=== PATIENT | female | born 1935 | race Hispanic/Latino ===

== ENCOUNTER 2023-04-26 10:27 | Inpatient (IN) | payer MEDICARE ==
[~2023-04-26] VITALS: Ht 160 cm; Wt 71.7 kg
[2023-04-26] MEDS ORDERED: ASPIRIN 325 MG TAB PO ONE (11:00)
[2023-04-26] MEDS ORDERED: FAMOTIDINE 20 MG/2 ML VIAL IV STA (11:10)
[2023-04-26] MEDS ORDERED: ONDANSETRON HCL INJ 2MG/ML 2ML 2 MG/ML VIAL IV STA (11:10)
[2023-04-26] MEDS ORDERED: Morphine 2mg Syringe 2 MG/ML SYR IV ONE (11:15)
[2023-04-26] MEDS ORDERED: FAMOTIDINE 20 MG/2 ML VIAL IV ONE (11:26)
[2023-04-26] MEDS ORDERED: Morphine 4mg INJECTION 4 MG/ML INJ ONE (11:26)
[2023-04-26] MEDS ORDERED: ONDANSETRON HCL INJ 2MG/ML 2ML 2 MG/ML VIAL ONE (11:26)
[2023-04-26] MEDS ORDERED: ASPIRIN 325 MG TAB ONE (11:26)
[2023-04-26] MEDS ORDERED: Morphine 4mg INJECTION 4 MG/ML INJ IV ONE (11:45)
[2023-04-26] MEDS ORDERED: ONDANSETRON HCL INJ 2MG/ML 2ML 2 MG/ML VIAL IV PRN (13:45)
[2023-04-26] MEDS ORDERED: PIPERACILLIN/TAZOBACTAM 3.375 GM VIAL ONE (13:56)
[2023-04-26 16:01] VITALS: BP 132/60; PULSE 69; RESP 18; TEMP 97.4; O2SAT 97
[2023-04-26 16:12] VITALS: BP 132/60; PULSE 69; RESP 18; TEMP 97.4; O2SAT 97
[2023-04-26] MEDS: ACETAMINOPHEN 325 MG TAB PO PRN (16:12)
[2023-04-26] MEDS: SODIUM CHLORIDE 0.9% 1000ML 1,000 ML IV SCH (16:12)
[2023-04-26] MEDS ORDERED: ACETAMINOPHEN325 M1 PO (16:19)
[2023-04-26] MEDS ORDERED: DOCUSATE SODIU100 MG PO (16:19)
[2023-04-26] MEDS ORDERED: ROSUVASTATIN CAL5 MG PO (16:19)
[2023-04-26] MEDS ORDERED: OLMESARTAN MEDO40 MG PO (16:19)
[2023-04-26] MEDS ORDERED: ASPIRIN81 MG PO (16:19)
[2023-04-26] MEDS ORDERED: FEROSUL325 MG PO (16:19)
[2023-04-26 16:20] VITALS: BP 132/60; PULSE 69; RESP 18; TEMP 98.4; O2SAT 97
[2023-04-26 20:24] VITALS: BP 102/51; PULSE 63; RESP 17; TEMP 97.7; O2SAT 100
[2023-04-26] MEDS: Morphine 4mg INJECTION 4 MG/ML INJ IV PRN (20:34)
[2023-04-27] VITALS (9 sets, daily range): BP systolic 111–148; BP diastolic 48–56; PULSE 64–79; RESP 16–20; TEMP 97.7–98.6; O2SAT 98–100
[2023-04-27] MEDS: SODIUM CHLORIDE 0.9% 1000ML 1,000 ML IV SCH ×2 (04:08→17:00)
[2023-04-27 07:35] LABS: BASOPHILS % 0.2 % (0.0-1.0); EOSINOPHILS # (AUTO) 0.1 (0.0-0.4); HEMATOCRIT 33.2 % (34.2-44.1); HEMOGLOBIN 10.6 g/dL (12.0-16.0); LYMPHOCYTES # (AUTO) 2.1 (1.0-3.2); LYMPHOCYTES % 26.3 % (18.0-39.1); MEAN CORPUSCULAR HEMOGLOBIN 27.4 pg (28-32); MEAN CORPUSCULAR HGB CONC 31.9 g/dL (31-35); MEAN CORPUSCULAR VOLUME 85.8 fL (81-99); MONOCYTES # (AUTO) 0.7 (0.2-0.8); MONOCYTES % 8.7 % (4.4-11.3); NEUTROPHILS # (AUTO) 5.1 (2.1-6.9); NEUTROPHILS % 63.7 % (38.7-80.0); PLATELET COUNT 253 x10e3/uL (140-360); RED BLOOD COUNT 3.87 x10e6/uL (3.6-5.1); RED CELL DISTRIBUTION WIDTH 14.6 % (11.7-14.4)
[2023-04-27 08:01] LABS: ALBUMIN 3.1 g/dL (3.5-5.0); ALBUMIN/GLOBULIN RATIO 0.9 (0.8-2.0); ANION GAP 12.1 mmol/L (8-16); CALCIUM 8.4 mg/dL (8.4-10.2); CREATININE, SERUM 0.92 mg/dL (0.57-1.11); POTASSIUM 4.1 mmol/L (3.5-5.1)
[2023-04-27] MEDS: ACETAMINOPHEN 325 MG TAB PO PRN (14:43)
[2023-04-28] VITALS (7 sets, daily range): BP systolic 131–171; BP diastolic 53–83; PULSE 60–85; RESP 17–21; TEMP 97.6–98.8; O2SAT 97–100
[2023-04-28 05:52] LABS: CHOL/HDL RATIO 4.3 (3.0-3.6)
[2023-04-28] MEDS: SODIUM CHLORIDE 0.9% 1000ML 1,000 ML IV SCH ×2 (06:03→22:05)
[2023-04-28] MEDS: Morphine 4mg INJECTION 4 MG/ML INJ IV PRN (08:35)
[2023-04-28 11:01] LABS: ANION GAP 18.9 mmol/L (8-16); CALCIUM 8.7 mg/dL (8.4-10.2); CREATININE, SERUM 0.84 mg/dL (0.57-1.11); POTASSIUM 3.9 mmol/L (3.5-5.1)
[2023-04-28] MEDS: CRESTOR 10MG PO SCH (21:19)
[2023-04-29] VITALS (9 sets, daily range): BP systolic 131–187; BP diastolic 60–90; PULSE 73–87; RESP 16–17; TEMP 97.6–99.3; O2SAT 98–100
[2023-04-29] MEDS: SODIUM CHLORIDE 0.9% 1000ML 1,000 ML IV SCH ×2 (08:25→21:18)
[2023-04-29] MEDS: METOPROLOL TARTRATE 25 MG TAB PO SCH ×2 (09:00→17:38)
[2023-04-29] MEDS: METOPROLOL TARTRATE INJ 1 MG/ML VIAL IV PRN ×2 (12:21→19:52)
[2023-04-29] MEDS: ACETAMINOPHEN 325 MG TAB PO PRN (19:53)
[2023-04-29] MEDS: CRESTOR 10MG PO SCH (21:14)
[2023-04-30] VITALS (8 sets, daily range): BP systolic 139–180; BP diastolic 60–77; PULSE 57–83; RESP 17–20; TEMP 98–98.9; O2SAT 99–100
[2023-04-30] MEDS: METOPROLOL TARTRATE INJ 1 MG/ML VIAL IV PRN (01:31)
[2023-04-30 07:42] LABS: BASOPHILS % 0.4 % (0.0-1.0); EOSINOPHILS # (AUTO) 0.2 (0.0-0.4); EOSINOPHILS % 2.3 % (0.0-6.0); HEMATOCRIT 34.5 % (34.2-44.1); HEMOGLOBIN 11.4 g/dL (12.0-16.0); LYMPHOCYTES # (AUTO) 2.9 (1.0-3.2); LYMPHOCYTES % 40.3 % (18.0-39.1); MEAN CORPUSCULAR HEMOGLOBIN 27.1 pg (28-32); MEAN CORPUSCULAR VOLUME 81.9 fL (81-99); MONOCYTES # (AUTO) 0.5 (0.2-0.8); MONOCYTES % 6.8 % (4.4-11.3); NEUTROPHILS # (AUTO) 3.6 (2.1-6.9); NEUTROPHILS % 50.1 % (38.7-80.0); PLATELET COUNT 311 x10e3/uL (140-360); RED BLOOD COUNT 4.21 x10e6/uL (3.6-5.1); RED CELL DISTRIBUTION WIDTH 14.2 % (11.7-14.4)
[2023-04-30 08:05] LABS: ANION GAP 12.8 mmol/L (8-16); CALCIUM 9.1 mg/dL (8.4-10.2); CREATININE, SERUM 0.85 mg/dL (0.57-1.11); POTASSIUM 3.8 mmol/L (3.5-5.1)
[2023-04-30] MEDS: HYDRALAZINE HCL 20 MG/ML VIAL IV PRN ×2 (08:36→11:41)
[2023-04-30] MEDS: METOPROLOL TARTRATE 25 MG TAB PO SCH ×2 (09:03→17:44)
[2023-04-30] MEDS: SODIUM CHLORIDE 0.9% 1000ML 1,000 ML IV SCH ×2 (11:05→21:33)
[2023-04-30] MEDS: ACETAMINOPHEN 325 MG TAB PO PRN ×2 (11:44→20:40)
[2023-04-30] MEDS ORDERED: ACETAMINOPHEN 325 MG TAB PO PRN (11:45)
[2023-04-30] MEDS: OLMESARTAN 20 MG TAB PO SCH (12:13)
[2023-04-30] MEDS ORDERED: DOCUSATE SODIUM 100 MG CAP PO SCH (21:00)
[2023-04-30] MEDS ORDERED: ROSUVASTATIN CALCIUM 5 MG PO SCH (21:00)
[2023-04-30] MEDS: CRESTOR 10MG PO SCH (21:32)
[2023-05-01] VITALS: BP 137/67; PULSE 74; RESP 17; TEMP 98.6; O2SAT 98
[2023-05-01 04:00] VITALS: BP 151/52; PULSE 70; RESP 16; TEMP 98.4; O2SAT 99
[2023-05-01] MEDS ORDERED: ONDANSETRON ODT4 MG PO (06:44)
[2023-05-01] MEDS ORDERED: METRONIDAZOLE500 MG PO (06:44)
[2023-05-01] MEDS ORDERED: LOPRESSOR25 MG PO (06:44)
[2023-05-01] MEDS ORDERED: CEPHALEXIN500 MG PO (06:44)
[2023-05-01 07:59] VITALS: BP 155/65; PULSE 75; RESP 20; TEMP 97.8; O2SAT 98
[2023-05-01] MEDS ORDERED: FERROUS SULFATE 325 MG TAB PO SCH (09:00)
[2023-05-01] MEDS: METOPROLOL TARTRATE 25 MG TAB PO SCH (09:22)
[2023-05-01] MEDS: OLMESARTAN 20 MG TAB PO SCH (09:22)
[2023-05-01] MEDS ORDERED: ONDANSETRON HCL 4 MG ORAL DISINTEGRATING TAB PO PRN (10:45)
== END 2023-05-01 10:59 | disposition home or self-care (01) | DRG 446 ==
LOC: FSED 10:51 → ERHOLD 13:43 → MED/SURG2 14:54
PROVIDERS: ADMIT Internal Medicine; ATTEND Internal Medicine
DX: K80.51 Calculus of bile duct without cholangitis or cholecystitis with obstruction (principal); K21.9 Gastro-esophageal reflux disease without esophagitis; I10 Essential (primary) hypertension; E78.5 Hyperlipidemia, unspecified; R07.9 Chest pain, unspecified; Z87.11 Personal history of peptic ulcer disease; Z20.822 Contact with and (suspected) exposure to COVID-19
CPT/HCPCS: 0223U; 36415; 71045; 71260; 74177; 74181; 80048; 80053; 80061; 82248; 82553; 84484; 85025; 93005; 93306; 99284; J2270; J2405; J2543; J7030